=== PATIENT | female | born 1980 | race Caucasian/White ===

== ENCOUNTER 2019-04-03 16:44 | Emergency (ER) | payer SELFPAY ==
[~2019-04-03] VITALS: Ht 157.5 cm; Wt 72.6 kg
[2019-04-03 17:10] VITALS: BP 133/68
[2019-04-03 17:25] LABS: BILIRUBIN,URINE NEGATIVE (NEG); CLARITY,URINE CLOUDY; COLOR,URINE YELLOW; NITRITE,URINE NEGATIVE (NEG); PROTEIN,URINE 30 mg/dL (NEG-TRACE); UROBILINOGEN,URINE 0.2 mg/dL (0.2 mg/dL)
[2019-04-03 17:34] LABS: BACTERIA,URINE MANY /HPF (0-FEW); RBC,URINE 20-40 /HPF (0-2); SQUAMOUS EPITHELIAL CELL,UR FEW /LPF; WBC,URINE TNTC /HPF (0-4)
--- NOTE | 2019-04-03 18:33 | RAD ---
3 views right wrist and 3 views right hand dated 04/03/2019. No comparison available. CLINICAL INDICATION: Right hand and wrist pain after fall yesterday. FINDINGS: 3 views of the right wrist show normal bony alignment. No displaced fracture. No acute osseous or articular abnormality. 3 views the right hand show normal bony alignment. There is cortical irregularity at the head/neck of fourth proximal phalanx near the radial side with overlying soft tissue swelling. Mild degenerative change of the interphalangeal joints throughout. Old healed fracture deformity of the fifth metacarpal. IMPRESSION: 1. Cortical irregularity of the head/neck of fourth metacarpal could be related to degenerative change or small nondisplaced fracture. Correlate clinically. 2. Otherwise no acute findings. Electronically signed by: Wilman Liu MD (04/03/2019 6:30 PM) [facility]
[2019-04-03] MEDS ORDERED: SULF1TAB24 PO (18:43)
[2019-04-03] MEDS ORDERED: PHEN100T82 PO (18:43)
--- NOTE | 2019-04-03 18:44 | PHYS DOC ---
Past Medical History Past Medical History: Anxiety, Bipolar, Depression, Diabetes-Type II Past Surgical History: Tubal ligation Alcohol Use: Occasionally Drug Use: Cocaine, Marijuana, Other Adult General Chief Complaint Chief Complaint: WRIST PAIN [facility] HPI Patient is a 39 year old female, accompanied by her , who presents to the emergency department with complaints of right wrist and right fourth digit pain after a fall yesterday at approximately 1700. Patient states she was walking outside when she tripped and fell landing onto her right arm. He denies any numbness, tingling, or weakness of the affected extremity. Patient also states that since yesterday evening she has had increased urinary frequency, dysuria, and hematuria. She states that she feels like she has a urinary tract infection. Patient denies any fever, back pain, nausea, vomiting, diarrhea, abdominal pain, shortness of breath, chest pain, or wheezing. She currently rates her pain as 7 out of 10 on the pain scale. She states that she took some Tylenol and ibuprofen prior to arrival and states that that medication has helped slightly. Review of Systems Review of Systems Constitutional: Denies fever or chills [] Eyes: Denies change in visual acuity, redness, or eye pain [] HENT: Denies nasal congestion or sore throat [] Respiratory: Denies cough or shortness of breath [] Cardiovascular: No additional information not addressed in HPI [] GI: Denies abdominal pain, nausea, vomiting, bloody stools or diarrhea [] : Denies dysuria or hematuria [] Musculoskeletal: Denies back pain or joint pain [] Integument: Denies rash or skin lesions [] Neurologic: Denies headache, focal weakness or sensory changes [] Endocrine: Denies polyuria or polydipsia [] All other systems were reviewed and found to be within normal limits, except as documented in this note. Allergies Allergies Allergies Coded Allergies Type Severity Reaction Last Updated Verified Penicillins Allergy Intermediate 11/30/15 Yes cephalexin Allergy Intermediate 11/30/15 Yes Physical Exam Physical Exam Constitutional: Well developed, well nourished, no acute distress, non-toxic appearance. [] HENT: Normocephalic, atraumatic, bilateral external ears normal, nose normal. [] Eyes: PERRLA, EOMI, conjunctiva normal, no discharge. [] Neck: Normal range of motion, no stridor. [] Cardiovascular:Heart rate regular rhythm, no murmur [] Lungs & Thorax: Bilateral breath sounds clear to auscultation [] Abdomen: soft, no tenderness Skin: Warm, dry, no erythema, no rash. [] Back: No tenderness, no CVA tenderness. [] Extremities: R wrist TTP with limited ROM due to pain and no edema or obvious deformity; R 4th digit TTP at DIP, no crepitus, no cyanosis, no clubbing, ROM intact, 1+ edema. [] Neurologic: Alert and oriented X 3, no focal deficits noted. [] Psychologic: Affect normal, judgement normal, mood normal. [] Current Patient Data Vital Signs Vital Signs Date Time Temp Pulse Resp B/P (MAP) Pulse Ox O2 Delivery O2 Flow Rate FiO2 04/03/19 17:10 98.7 100 20 133/68 (89) 97 Room Air 98.7 Lab Values Laboratory Tests Test 04/03/19 17:10 Urine Collection Type Unknown Urine Color Yellow Urine Clarity Cloudy Urine pH 6.0 Urine Specific [place] >=1.030 Urine Protein 30 mg/dL (NEG-TRACE) Urine Glucose (UA) >=1000 mg/dL (NEG) Urine Ketones (Stick) Negative mg/dL (NEG) Urine Blood Large (NEG) Urine Nitrite Negative (NEG) Urine Bilirubin Negative (NEG) Urine Urobilinogen Dipstick 0.2 mg/dL (0.2 mg/dL) Urine Leukocyte Esterase Moderate (NEG) Urine RBC 20-40 /HPF (0-2) Urine WBC Tntc /HPF (0-4) Urine Squamous Epithelial Cells Few /LPF Urine Transitional Epithelial Cells Occ /LPF Urine Bacteria Many /HPF (0-FEW) Urine Mucus Slight /LPF EKG EKG [] Radiology/Procedures Radiology/Procedures PROCEDURE: HAND RIGHT 3V 3 views right wrist and 3 views right hand dated 04/03/2019. No comparison available. CLINICAL INDICATION: Right hand and wrist pain after fall yesterday. FINDINGS: 3 views of the right wrist show normal bony alignment. No displaced fracture. No acute osseous or articular abnormality. 3 views the right hand show normal bony alignment. There is cortical irregularity at the head/neck of fourth proximal phalanx near the radial side with overlying soft tissue swelling. Mild degenerative change of the interphalangeal joints throughout. Old healed fracture deformity of the fifth metacarpal. IMPRESSION: 1. Cortical irregularity of the head/neck of fourth metacarpal could be related to degenerative change or small nondisplaced fracture. Correlate clinically. 2. Otherwise no acute findings.[] Course & Med Decision Making Course & Med Decision Making Pertinent Labs and Imaging studies reviewed. (See chart for details) 1845-spoke with Dr. Han about right fourth digit fracture, will apply a ulnar gutter splint and have patient follow-up with Dr. Han in the clinic. Amylase concerning for a urinary tract infection will prescribe Bactrim twice a day 7 days. Patient encouraged to increase clear fluids and avoid bladder irritants. Prescriptions written for Bactrim DS, Pyridium, and hydrocodone 5/325 mg tablets #8. Patient verbalized an understanding of home care, medications, follow-up, and return to ED instructions and was in agreement with the plan of care. [] Dragon Disclaimer Dragon Disclaimer This electronic medical record was generated, in whole or in part, using a voice recognition dictation system. Departure Departure Impression: Primary Impression: Nondisp fx neck fourth metacarpal bone right hand w/routine heal Additional Impression: UTI (urinary tract infection) Disposition: HOME, SELF-CARE Condition: STABLE Referrals: NO PCP (PCP) SHEREEN HAN MD Patient Instructions: Hand Fracture, Metacarpals, [id number] Additional Instructions: Fill prescription(s) and use as directed. Avoid bladder irritants such as caffeine, carbonation, and spicy foods. Increase clear fluids. Follow up with your primary care doctor in 1-2 days for repeat evaluation of urinary symptoms, return to the ER if symptoms worsen. Recommend application of ice, elevation, and rest of affected extremity. Wear th e splint that was placed until follow up appointment with Dr. Han. Call morning to schedule your appointment with him. Scripts Hydrocodone Bit/Acetaminophen (HYDROCODONE-APAP 5-325 ) 1 Tab Tablet 1 TAB PO PRN Q6HRS PRN for PAIN for 2 Days, #8 TAB 0 Refills Prov: SUNSHINE PIERSON APRN 04/03/19 Phenazopyridine Hcl (PYRIDIUM) 100 Mg Tablet 1 TAB PO TID for urinary discomfort for 3 Days, #9 TAB 0 Refills Prov: SUNSHINE PIERSON [employer] 04/03/19 Sulfamethoxazole/Trimethoprim (BACTRIM DS TABLET) 1 Each Tablet 1 TAB PO BID for 10 Days, #20 TAB 0 Refills Prov: SUNSHINE PIERSON APRN 04/03/19 Splinting Splinting : Location: R wrist Hand-Made Type: orthoglass (volar) Pre-Proc Neuro Vasc Exam: normal Post-Proc Neuro Vasc Exam: normal, unchanged from pre-exam Problem Qualifiers Primary Impression: Nondisp fx neck fourth metacarpal bone right hand w/routine heal Fracture type: closed Qualified Codes: S62.364D - Nondisplaced fracture of neck of fourth metacarpal bone, right hand, subsequent encounter for fracture with routine healing Additional Impression: UTI (urinary tract infection) Urinary tract infection type: site unspecified Hematuria presence: with hematuria Qualified Codes: N39.0 - Urinary tract infection, site not specified; R31.9 - Hematuria, unspecified SUNSHINE PIERSON APRN Apr 03, 2019 18:44
[2019-04-03] MEDS ORDERED: HYDR-2761 PO (18:58)
[2019-04-03] MEDS ORDERED: HYDROcodone/APAP 5/325MG 1 TAB TABLET ONE (19:00)
== END 2019-04-03 19:01 | disposition home or self-care (01) ==
LOC: ER 16:44
DX: S62.364A Nondisplaced fracture of neck of fourth metacarpal bone, right hand, initial encounter for closed fracture (principal); N39.0 Urinary tract infection, site not specified; F41.9 Anxiety disorder, unspecified; F31.9 Bipolar disorder, unspecified; E11.8 Type 2 diabetes mellitus with unspecified complications; Z98.51 Tubal ligation status; F14.90 Cocaine use, unspecified, uncomplicated; F12.90 Cannabis use, unspecified, uncomplicated; Z72.89 Other problems related to lifestyle; W01.0XXA Fall on same level from slipping, tripping and stumbling without subsequent striking against object, initial encounter; Y93.01 Activity, walking, marching and hiking; Y92.89 Other specified places as the place of occurrence of the external cause; Y99.8 Other external cause status
CPT/HCPCS: 29125; 73110; 73130; 81001; 87086; 87186; 99285